=== PATIENT | female | born 1960 | race Caucasian/White ===

== ENCOUNTER 2016-04-12 08:10 | Observation (INO) | payer OTHER ==
--- NOTE | 2016-04-12 08:12 | EDPHY ---
H & P Time Seen by Provider: 04/12/16 08:12 - Medical/Surgical History Hx Asthma: Yes Hx Chronic Respiratory Disease: No Hx Diabetes: Yes Hx Cardiac Disease: No Hx Renal Disease: No Hx Cirrhosis: No Hx Alcoholism: No Hx HIV/AIDS: No Hx Splenectomy or Spleen Trauma: No Other PMH: Diabetes type I, asthma, hyperlipidemia, "heart problems" - Social History Smoking Status: Never smoked Constitutional: Initial Vital Signs Temperature (C) 36.6 C 04/12/16 08:10 Heart Rate 92 04/12/16 08:10 Respiratory Rate 18 04/12/16 08:10 Blood Pressure 122/84 H 04/12/16 08:10 O2 Sat (%) 97 04/12/16 08:10 O2 Delivery Mode Room Air O2 (L/minute) 2 Allergies/Adverse Reactions: diphenhydramine HCl [From Benadryl] Adverse Reaction (Mild, Verified 04/12/16 08 :12) RACING HEART RATE Home Medications: Medication Instructions Recorded Aspirin [Aspirin 81mg (*)] 81 mg PO DAILY 04/12/16 Atorvastatin Calcium [Lipitor 20 20 mg PO DAILY 04/12/16 mg (*)] Levothyroxine [Synthroid 100 mcg 100 mcg PO DAILY06 04/12/16 (*)] Lisinopril [Zestril 5 mg (*)] 5 mg PO 04/12/16 Metformin HCl [Metformin 1000 mg] 1,000 mg PO 04/12/16 cloZAPine [Clozaril (*)] 100 mg PO 04/12/16 sitaGLIPtin PHOSPHATE [Januvia 100 100 mg PO DAILY 04/12/16 MG (*)] Medical Decision Making ED Course/Re-evaluation: CHIEF COMPLAINT: Chest pain HISTORY OF PRESENT ILLNESS: The patient is a 55 y/o female complaining of intermittent chest pressure that woke her from sleep around midnight, about 8 hours ago. She has a history of COPD, diabetes, and a "silent MO" with heart catheterization in 2013 that showed some stenosis. Her pain has woke her repeatedly from sleep over this period and varied in intensity from 3/10 to 8/ 10. She has chronic dyspnea related to her COPD, but feels it is worse today and associated with lightheadedness. No nausea or vomiting. She normally takes a daily baby aspirin, but has not taken it today. REVIEW OF SYSTEMS: A 10 point review of systems was performed and is negative with the exception of the elements mentioned in the history of present illness. PHYSICAL EXAM: HR, BP, O2 Sat, RR. Temp noted General Appearance: Alert, well hydrated, appropriate, and non-toxic appearing. Head: Atraumatic without scalp tenderness or obvious injury Eyes: Pupils equal, round, reactive to light and accommodation, EOMI, no trauma , no injection. Ears: Clear bilaterally, no perforation, normal landmarks Nose: Atraumatic, no rhinorrhea, clear. Throat: There is no erythema or exudates, no lesions, normal tonsils, mucus membranes moist. Neck: Supple, 2+ carotid upstroke, nontender, no lymphadenopathy. Respiratory: No retractions, no distress, no wheezes, and no accessory muscle use. Mildly tachypneic while speaking. Lungs are clear to auscultation bilaterally. Cardiovascular: Regular rate and rhythm, no murmurs, rubs, or gallops. Bilateral carotid, radial, dorsalis pedis, and posterior tibial pulses intact. Good capillary refill all extremities. Gastrointestinal: Abdomen is soft, nontender, non-distended, no masses, no rebound, no guarding, no peritoneal signs. Musculoskeletal: Normal active ROM of all extremities, atraumatic. Neurological: Alert, appropriate, and interactive. The patient has normal DTRs and non-focal cranial nerves, motor, sensory, and cerebellar exam. Skin: No rashes, good turgor, no nodules on palpation. Past medical history: diabetes, COPD, "silent MO" Past surgical history: Cardiac catheterization 2013 Family history: Noncontributory Social history: Lives in [place] Prior medical records reviewed including catheterization May [address] Hayes. DIAGNOSTICS/PROCEDURES/CRITICAL CARE TIME: The 12 lead EKG was interpreted by myself. Sinus rhythm rate 90, LAD, poor R wave progression. See hard copy and/or "tracemaster" electronic copy for interpretation. DIFFERENTIAL DIAGNOSIS: The differential diagnosis for the patient's chest pain included but was not limited to myocardial ischemia, pulmonary embolus, chest wall pain, pleural inflammation, and pulmonary infectious causes. MEDICAL DECISION MAKING: This is a 55 y/o female, with a history of diabetes, COPD, and prior heart catheterization who presents today with 8 hours of intermittent chest pressure that repeatedly woke her from sleep. She has associated dyspnea worse than baseline. She has some increased respiratory effort on exam, but otherwise normal. Plan for full cardiac work up including IV, cardiac labs, and EKG. 324mg PO aspirin administered. 0915: Troponin negative. Discussed case with Dr. Summers, cardiology. He will assess patient in the ED. - Data Points Laboratory Results: Laboratory Results 04/12/16 08:20 04/12/16 08:20 04/12/16 04/12/16 08:20 08:17 WBC 7.95 10^3/uL (3.80-9.50) RBC 5.09 10^6/uL (4.18-5.33) Hgb 14.3 g/dL (12.6-16.3) POC Hgb 15.3 gm/dL (12.3-15.9) Hct 43.5 % (38.0-47.0) POC Hct 45 % (35.5-47.5) MCV 85.5 fL (81.5-99.8) MCH 28.1 pg (27.9-34.1) MCHC 32.9 g/dL (32.4-36.7) RDW 14.2 % (11.5-15.2) Plt Count 272 10^3/uL (150-400) MPV 9.6 fL (8.7-11.7) Neut % (Auto) 64.4 % (39.3-74.2) Lymph % (Auto) 22.9 % (15.0-45.0) [place] % (Auto) 8.6 % (4.5-13.0) Eos % (Auto) 2.8 % (0.6-7.6) Baso % (Auto) 0.8 % (0.3-1.7) Nucleat RBC Rel Count 0.0 % (0.0-0.2) Absolute Neuts (auto) 5.13 10^3/uL (1.70-6.50) Absolute Lymphs (auto) 1.82 10^3/uL (1.00-3.00) Absolute Monos (auto) 0.68 10^3/uL (0.30-0.80) Absolute Eos (auto) 0.22 10^3/uL (0.03-0.40) Absolute Basos (auto) 0.06 10^3/uL (0.02-0.10) Absolute Nucleated RBC 0.00 10^3/uL (0-0.01) Immature Gran % 0.5 % (0.0-1.1) Immature Gran # 0.04 10^3/uL (0.00-0.10) POC Sodium 143 mEq/L (134-144) Sodium 144 mEq/L (134-144) POC Potassium 3.9 mEq/L (3.3-5.0) Potassium 4.3 mEq/L (3.5-5.2) POC Chloride 106 mEq/L (96-108) Chloride 110 mEq/L (97-110) Carbon Dioxide 22 mEq/l (22-31) Anion Gap 12 mEq/L (8-16) POC BUN 5 L mg/dL (7-23) BUN 7 mg/dL (7-23) Creatinine 0.9 mg/dL (0.6-1.0) POC Creatinine 0.9 mg/dL (0.6-1.2) Estimated GFR > 60 Glucose 110 H mg/dL (70-100) POC Glucose 113 H mg/dL (70-100) Calcium 9.5 mg/dL (8.5-10.4) Troponin I < 0.012 ng/mL (0-0.034) Point of Care Test Results: 04/12/16 08:17 POC Sodium 143 POC Potassium 3.9 POC Chloride 106 POC BUN 5 L POC Creatinine 0.9 POC Glucose 113 H Report Scribed for: Elijah Talbot Report Scribed by: Nanci Lambert Date of Report: 04/12/16 Time of Report: 08:37
--- NOTE | 2016-04-12 08:19 | CPEKG ---
Heart Rate: 90 RR Interval: 667 P-R Interval: 152 QRSD Interval: 88 QT Interval: 356 QTC Interval: 436 P Brewster: 16 QRS Brewster: -49 T Wave Brewster: 10 EKG Severity - ABNORMAL ECG - EKG Impression: SINUS RHYTHM EKG Impression: LAD, CONSIDER LAFB OR INFERIOR INFARCT EKG Impression: BORDERLINE R WAVE PROGRESSION, ANTERIOR LEADS Electronically Signed By: Elijah Talbot 12-Apr-2016 14:31:23
[2016-04-12] MEDS ORDERED: ASPIRIN 81 MG CHEWABLE TAB PO ONE (08:24)
[2016-04-12] MEDS ORDERED: ASPIRIN 81 MG CHEWABLE TAB ONE (08:26)
[2016-04-12 08:34] LABS: % IMMATURE GRANULYOCYTES 0.5 % (0.0-1.1); ABSOLUTE IMMATURE GRANULOCYTES 0.04 10^3/uL (0.00-0.10); ADD DIFF? NO; ADD MORPH? NO; ADD SCAN? NO; ATYPICAL LYMPHOCYTE FLAG 0 (0-99); FRAGMENT RBC FLAG 0 (0-99); HEMATOCRIT 43.5 % (38.0-47.0); HEMOGLOBIN 14.3 g/dL (12.6-16.3); LEFT SHIFT FLG 0 (0-99); LIPEMIA HEMOLYSIS FLAG 80 (0-99); MEAN CELL HEMOGLOBIN 28.1 pg (27.9-34.1); MEAN CELL HEMOGLOBIN CONCENTR. 32.9 g/dL (32.4-36.7); MEAN CELL VOLUME 85.5 fL (81.5-99.8); MEAN PLATELET VOLUME 9.6 fL (8.7-11.7); PLATELET CLUMPS FLAG 0 (0-99); PLATELET COUNT 272 10^3/uL (150-400); RED BLOOD CELL COUNT 5.09 10^6/uL (4.18-5.33); RED CELL DISTRIBUTION WIDTH 14.2 % (11.5-15.2)
[2016-04-12 08:49] LABS: ANION GAP 12 mEq/L (8-16); CALCIUM 9.5 mg/dL (8.5-10.4); CARBON DIOXIDE 22 mEq/l (22-31); CHLORIDE 110 mEq/L (97-110); CREATININE 0.9 mg/dL (0.6-1.0); GLOMERULAR FILTRATION RATE > 60; GLUCOSE 110 mg/dL (70-100); POTASSIUM 4.3 mEq/L (3.5-5.2); SODIUM 144 mEq/L (134-144)
[2016-04-12 09:00] LABS: TROPONIN I < 0.012 ng/mL (0-0.034)
[2016-04-12] MEDS ORDERED: NS 1,000 ML IV ONE ×2 (11:39)
[2016-04-12] MEDS ORDERED: ASPIRIN EC 325 MG TAB PO ONE ×3 (11:39→12:31)
[2016-04-12] MEDS ORDERED: FAMOTIDINE 20 MG TAB PO ONE ×2 (11:39)
[2016-04-12 11:58] LABS: INR 1.02 (0.83-1.16); PROTIME(PATIENT) 13.3 SEC (12.0-15.0)
[2016-04-12] MEDS ORDERED: NITROGLYCERIN 0.4 MG BTL SL PRN (12:31)
[2016-04-12] MEDS ORDERED: TEMAZEPAM 15 MG CAP PO PRN (12:31)
[2016-04-12] MEDS ORDERED: DIAZEPAM 5 MG TAB PO ONE (12:31)
[2016-04-12] MEDS ORDERED: ACETAMINOPHEN 325 MG TAB PO PRN (12:31)
[2016-04-12] MEDS ORDERED: diphenhydrAMINE 25 MG CAP PO ONE (12:31)
--- NOTE | 2016-04-12 12:48 | PDGENHP ---
History and Physical - Chief Complaint Chest Pressure - History of Present Illness This patient is a 55 year old woman, with known coronary artery disease (mild- moderate by left heart catheterization 05/2013), insulin dependent diabetes, and treated hyperlipidemia, who presented to the emergency department this morning after having approximately 8 hours of intermittent chest pressure, which woke her from sleep multiple times in the night. Discomfort was moderate in severity. The pain resolved once she got out of bed this morning and started moving around. At the time of this consultation, the pain has not recurred. Past medical history: Coronary artery disease (mild-moderate by [facility] 05/2013 with mid LAD 50% stenosis at that time), insulin dependent diabetes, treated hyperlipidemia, hypertension, hypothyroidism, asthma, COPD, ovarian cancer. Consultation requested by Dr. Elijah Talbot. Primary care provider: Dr. Fidelina Acosta with [facility]. History Information - Allergies/Home Medication List Allergies/Adverse Reactions: diphenhydramine HCl [From Benadryl] Allergy (Mild, Verified 04/12/16 13:10) RACING HEART RATE Home Medications: Aspirin [Aspirin 81mg (*)] 81 mg PO HS 04/12/16 [Last Taken 04/11/16 21:00] Atorvastatin Calcium [Lipitor 20 mg (*)] 20 mg PO HS 04/12/16 [Last Taken 21:00] Herbals/Supplements -Info Only 1 ea PO DAILY 04/12/16 [Last Taken Unknown] Insulin Glargine [Lantus 100 UNITS/ML (*)] 47 units SC HS 04/12/16 [Last Taken 04/11/16] Levothyroxine [Synthroid 100 mcg (*)] 100 mcg PO DAILY06 04/12/16 [Last Taken ] Lisinopril [Zestril 5 mg (*)] 5 mg PO DAILY 04/12/16 [Last Taken 04/12/16 07:00] Multivitamins [Multivitamin (*)] 1 each PO DAILY 04/12/16 [Last Taken Unknown] cloZAPine [Clozaril (*)] 100 mg PO HS 04/12/16 [Last Taken 04/11/16 21:00] metFORMIN HCL [Glucophage 500 mg (*)] 1,000 mg PO BIDMEAL 04/12/16 [Last Taken 04/12/16] sitaGLIPtin PHOSPHATE [Januvia 100 MG (*)] 100 mg PO DAILY 04/12/16 [Last Taken 04/12/16 07:00] I have personally reviewed and updated: family history, medical history, social history, surgical history - Past Medical History asthma, coronary artery disease, cancer (ovarian), COPD, diabetes type 2 ( insulin dependent), hyperlipidemia Review of Systems Review of Systems: Constitutional: Denies: chills, diaphoresis, fever Cardiac: Reports: chest pain Respiratory: Reports: shortness of breath (chronic secondary to COPD and asthma) Gastrointestinal: Denies: vomitting, nausea Genitourinary: Reports: no symptoms Muscolosketal: Reports: no symptoms Skin: Reports: no symptoms Neurological: Reports: no symptoms Physical Exam Physical Exam: Temp Pulse Resp BP Pulse Ox 98.4 F 73 18 128/60 H 95 04/12/16 11:52 04/12/16 11:52 04/12/16 11:52 04/12/16 11:52 04/12/16 11:52 O2 (L/minute) 2 Constitutional: no apparent distress, appears nourished, not in pain, obese Eyes: PERRL Ears, Nose, Mouth, Throat: moist mucous membranes Cardiovascular: regular rate and rhythym, no murmur, rub, or gallop, pulses symmetric bilaterally, other (Normal Davis's test bilaterally), No JVD, No carotid bruit, No edema Respiratory: no respiratory distress, no rales or rhonchi, clear to auscultation Gastrointestinal: soft, non-tender abdomen Skin: normal color Neurologic: AAOx3 Psychiatric: interacting appropriately Lab Data & Imaging Review 04/12/16 08:20 04/12/16 08:20 WBC 7.95 10^3/uL (3.80-9.50) 04/12/16 08:20 RBC 5.09 10^6/uL (4.18-5.33) 04/12/16 08:20 Hgb 14.3 g/dL (12.6-16.3) 04/12/16 08:20 POC Hgb 15.3 gm/dL (12.3-15.9) 04/12/16 08:17 Hct 43.5 % (38.0-47.0) 04/12/16 08:20 POC Hct 45 % (35.5-47.5) 04/12/16 08:17 MCV 85.5 fL (81.5-99.8) 04/12/16 08:20 MCH 28.1 pg (27.9-34.1) 04/12/16 08:20 MCHC 32.9 g/dL (32.4-36.7) 04/12/16 08:20 RDW 14.2 % (11.5-15.2) 04/12/16 08:20 Plt Count 272 10^3/uL (150-400) 04/12/16 08:20 MPV 9.6 fL (8.7-11.7) 04/12/16 08:20 Neut % (Auto) 64.4 % (39.3-74.2) 04/12/16 08:20 Lymph % (Auto) 22.9 % (15.0-45.0) 04/12/16 08:20 [place] % (Auto) 8.6 % (4.5-13.0) 04/12/16 08:20 Eos % (Auto) 2.8 % (0.6-7.6) 04/12/16 08:20 Baso % (Auto) 0.8 % (0.3-1.7) 04/12/16 08:20 Nucleat RBC Rel Count 0.0 % (0.0-0.2) 04/12/16 08:20 Absolute Neuts (auto) 5.13 10^3/uL (1.70-6.50) 04/12/16 08:20 Absolute Lymphs (auto) 1.82 10^3/uL (1.00-3.00) 04/12/16 08:20 Absolute Monos (auto) 0.68 10^3/uL (0.30-0.80) 04/12/16 08:20 Absolute Eos (auto) 0.22 10^3/uL (0.03-0.40) 04/12/16 08:20 Absolute Basos (auto) 0.06 10^3/uL (0.02-0.10) 04/12/16 08:20 Absolute Nucleated RBC 0.00 10^3/uL (0-0.01) 04/12/16 08:20 Immature Gran % 0.5 % (0.0-1.1) 04/12/16 08:20 Immature Gran # 0.04 10^3/uL (0.00-0.10) 04/12/16 08:20 PT 13.3 SEC (12.0-15.0) 04/12/16 08:20 INR 1.02 (0.83-1.16) 04/12/16 08:20 POC Sodium 143 mEq/L (134-144) 04/12/16 08:17 Sodium 144 mEq/L (134-144) 04/12/16 08:20 POC Potassium 3.9 mEq/L (3.3-5.0) 04/12/16 08:17 Potassium 4.3 mEq/L (3.5-5.2) 04/12/16 08:20 POC Chloride 106 mEq/L (96-108) 04/12/16 08:17 Chloride 110 mEq/L (97-110) 04/12/16 08:20 Carbon Dioxide 22 mEq/l (22-31) 04/12/16 08:20 Anion Gap 12 mEq/L (8-16) 04/12/16 08:20 POC BUN 5 mg/dL (7-23) L 04/12/16 08:17 BUN 7 mg/dL (7-23) 04/12/16 08:20 Creatinine 0.9 mg/dL (0.6-1.0) 04/12/16 08:20 POC Creatinine 0.9 mg/dL (0.6-1.2) 04/12/16 08:17 Estimated GFR > 60 04/12/16 08:20 Glucose 110 mg/dL (70-100) H 04/12/16 08:20 POC Glucose 98 mg/dL (70-100) 04/12/16 12:23 Calcium 9.5 mg/dL (8.5-10.4) 04/12/16 08:20 Troponin I < 0.012 ng/mL (0-0.034) 04/12/16 08:20 Assessment & Plan Assessment: 1. Chest pressure. Presenting at rest and waking the patient from sleep. She is pain free on my evaluation. Symptoms are concerning for class IV angina in the setting of known coronary artery disease and history of diabetes. Troponin in the emergency department was negative. 2. Coronary artery disease. Mild-moderate coronary artery disease by left heart catheterization 05/2013, with most significant disease being a hazy 50% mid LAD stenosis at that time. 3. Insulin dependent diabetes. Managed with Metformin and insulin. 4. Hyperlipidemia. Treated with 20mg Atorvastatin. The last lipids in our system were 05/31/13, with LDL of 150 at that time. 5. Hypertension. Treated with 5mg Lisinopril. 6. Hypothyroidism. Treated with 100mcg Levothyroxine daily. 7. Asthma 8. COPD Plan: 1. Plan for left heart catheterization with radial access this afternoon. Portions of this report were documented by a center medical and lab director. I have reviewed this report and agree with the documentation. Report scribed for Dr. Vidal Summers. Report scribed by Brisa Lucia.
[2016-04-12 13:26] LABS: CHOLESTEROL 176 mg/dL (140-220); CHOLESTEROL/HDL RATIO 3.74 RATIO (1.00-4.44); HIGH DENSITY LIPOPROTEIN 47 mg/dL (40-85); LDL/HDL RATIO 2.04 RATIO (1.00-3.22); LOW DENSITY LIPOPROTEIN 96 mg/dL (80-100); MAGNESIUM 1.9 mg/dL (1.6-2.3); NON-HIGH DENSITY LIPOPROTEIN 129 mg/dL (90-129); TRIGLYCERIDE 166 mg/dL (35-135); VERY LOW DENSITY LIPOPROTEINS 33 mg/dL (8-25)
[2016-04-12] MEDS ORDERED: fentaNYL 100 MCG/2 ML INJ ONE ×2 (13:34→14:07)
[2016-04-12] MEDS ORDERED: LIDOCAINE 1% 30 ML SDV ONE (13:34)
[2016-04-12] MEDS ORDERED: VERAPAMIL 5 MG/2 ML VIAL ONE (13:35)
[2016-04-12] MEDS ORDERED: MIDAZOLAM 2 MG/2 ML VIAL ONE ×2 (13:35→14:08)
[2016-04-12] MEDS ORDERED: IOPAMIDOL (ISOVUE-370) 150 ML BTL IV ONE (13:35)
[2016-04-12] MEDS ORDERED: HEPARIN 10,000 UNIT/10 ML MDV ONE (13:35)
--- NOTE | 2016-04-12 13:40 | SUROPNOTE ---
[facility] Operative Report - Surgery Date of Procedure: 04/12/16 Indication: This patient is a 55 year old woman, with known coronary disease, treated hyperlipidemia, hypertension, and insulin dependent diabetes, who presented to the emergency department today with approximately 8 hours of intermittent resting chest pressure, which woke her from sleep multiple times. The pressure resolved after she got up this morning and started moving around. Patient has known 50% mid LAD stenosis by [facility] in 05/2013. In the setting of known coronary disease and history of diabetes, symptoms are concerning for [place] Cardiovascular class IV angina. No stress testing was performed secondary to resting chest pain. Left heart catheterization will be performed urgently secondary to class IV angina. Procedures performed: 1. Left heart catheterization with left ventricular and selective coronary angiography. Description of procedure: Description, risks, benefits and alternatives were discussed in detail. Informed consent was obtained. The patient was brought to the catheterization laboratory where a timeout was performed. The right wrist was sterilely prepped and draped. 2% lidocaine utilized for local anesthetic. A 5/6-Yemeni slender hemostatic sheath placed right radial artery utilizing micropuncture technique. Intraarterial verapamil and intravenous heparin was administered. Diagnostic coronary angiography performed with 6-Yemeni, Ghislaine left-3.5, Ghislaine right-4 , Nitesh Right, and AL1 catheter. The right coronary was difficult to engage; ultimately this was achieved with the Nitesh Right and AL1 catheter. All catheters were passed over a 0.035 guidewire. Pigtail catheter was then utilized for left heart catheterization and left ventricular angiography. Arterial sheath was removed and TR band was placed. Findings: 1. Hemodynamics: Aortic pressure 111/64, mean of 80, left ventricular pressure 118/6/19 end-diastolic. There was no significant pull back gradient across the aortic valve. 2. Left ventricle: The left ventricle appears normal in size. Left ventricle is normal shape. Segmental wall motion is normal with an ejection fraction of 60 %. There are no filling defects or significant mitral regurgitation. The aortic root and ascending aorta appears normal, there is no dissection or aneurysm formation. 3. Coronary angiography: Left main: The left main is a short, large diameter bifurcating vessel, free of disease. 4. Left anterior descending: This is a moderately large vessel continuing around the apex which gives rise to two early diagonal branches, first is small and the second is moderate in size. The mid LAD contains a mildly hazy 40-50% stenosis. 5. Circumflex: This is a co-dominant vessel which gives rise to a small- moderate first obtuse marginal, large second obtuse marginal branch, and a moderate and small posterolateral branch. Free of disease. 6. 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 Overall Impression: 1. Moderate mid LAD disease with a hazy 40-50% stenosis. 2. Otherwise, there is very minimal coronary artery disease. 3. Normal left ventricular systolic function, with ejection fraction of 60%. Plan: 1. Continue aggressive risk modification and high dose statin therapy. 2. Outpatient evaluation with primary care provider Dr. Coni Acosta to evaluate non-cardiac chest pain. Portions of this report were documented by a medical charge entry specialist. I have reviewed this report and agree with the documentation. Report scribed for Dr. Vidal Summers. Report scribed by Brisa Lucia.
--- NOTE | 2016-04-12 17:17 | DX ---
Portable Chest, 1453 History: Chest pain post catheter procedure. Findings: Inspiratory phase is rather poor. Lungs clear. Heart normal. No pneumothorax or pleural eff usion. EKG leads overlie the chest. Impression: No source for chest pain identified.
[2016-04-12] MEDS ORDERED: INSULIN GLARGINE 100 UNITS/ML SYRINGE SC SCH (21:00)
[2016-04-12] MEDS ORDERED: cloZAPine 100 MG TAB PO SCH (21:00)
[2016-04-12] MEDS ORDERED: ATORVASTATIN CALCIUM 20 MG TAB PO SCH (21:00)
[2016-04-12] MEDS ORDERED: LEVOTHYROXINE 100 MCG TAB PO SCH (21:00)
[2016-04-13 08:49] VITALS: BP 122/77; PULSE 89; RESP 14; TEMP 98.5; O2SAT 94
[2016-04-13] MEDS ORDERED: ASPIRIN 81 MG CHEWABLE TAB PO SCH (09:00)
[2016-04-13] MEDS ORDERED: LISINOPRIL 5 MG TAB PO SCH (10:00)
--- NOTE | 2016-04-13 10:56 | SOAPPROG ---
SOAP Progress Note Assessment/Plan: Assessment: Cardiology ([place]) 1. Admit with chest pressure, worse in the supine position night before last, waking her up frequently. Non-cardiac in nature. D-dimer was negative. Possible GERD related. Patient usually takes OTC Tums. She denies any recent history of exertional chest discomfort. 2. Known CAD with moderate LAD disease. LHC performed yesterday was stable c/t prior in May 2013, no PCI performed. 3. Hyperlipidemia treated w/ atorvastatin. 4. HTN. 5. Insulin dependent DM. 6. COPD/asthma. Plan: 1. Hold metformin until tomorrow due to iv contrast yesterday. 2. Continue all other home medications. 3. Discharge to home today. 4. Follow up with PCP Dr. Acosta in 1-2 weeks, consider PPI. 04/13/16 10:53 04/13/16 10:57 04/13/16 11:03 Subjective: No complaints this am. Right radial puncture site is uncomplicated. No recurrent chest discomfort. Objective: Vital Signs Temp Pulse Resp BP Pulse Ox 36.9 C 89 14 122/77 H 94 04/13/16 08:00 04/13/16 08:00 04/13/16 08:00 04/13/16 08:00 04/13/16 08:00 04/12/16 04/13/16 04/14/16 05:59 05:59 05:59 Intake Total 350 Output Total 300 Balance 50 PT 13.3 SEC (12.0-15.0) 04/12/16 08:20 INR 1.02 (0.83-1.16) 04/12/16 08:20 Physical Exam - Physical Exam General Appearance: WD/WN, alert, no apparent distress, obese Respiratory: chest non-tender, lungs clear, normal breath sounds Cardiac/Chest: normal peripheral pulses, regular rate, rhythm Peripheral Pulses: 2+: dorsalis-pedis (R), dorsalis-pedis (L) Abdomen: normal bowel sounds, non-tender, soft Extremities: No swelling Neuro/Psych: no motor/sensory deficits, alert, normal mood/affect, oriented x 3 ICD10 Worksheet Patient Problems: Problems Problem Status Diagnosed Chest pain Acute Coronary artery disease Acute
[2016-04-13] MEDS ORDERED: cloZAPine 100 MG TAB PO SCH (21:00)
[2016-04-13] MEDS ORDERED: INSULIN GLARGINE 100 UNITS/ML SYRINGE SC SCH (21:00)
[2016-04-14] MEDS ORDERED: metFORMIN HCL 500 MG TAB PO SCH (08:00)
[2016-04-14] MEDS ORDERED: Herbals/Supplements -Info Only PO SCH (09:00)
[2016-04-14] MEDS ORDERED: MULTIVITAMINS 1 EACH TAB PO SCH (09:00)
== END 2016-04-13 11:40 | disposition home or self-care (01) ==
LOC: FCATH 11:53 → F2W 14:54
PROVIDERS: ADMIT Internal Medicine Interventional Cardiology; ATTEND Internal Medicine Interventional Cardiology
DX: R07.89 Other chest pain (principal); I25.10 Atherosclerotic heart disease of native coronary artery without angina pectoris; E11.9 Type 2 diabetes mellitus without complications; J45.909 Unspecified asthma, uncomplicated; E78.5 Hyperlipidemia, unspecified; E03.9 Hypothyroidism, unspecified; J44.9 Chronic obstructive pulmonary disease, unspecified; Z85.43 Personal history of malignant neoplasm of ovary
CPT/HCPCS: 71010; 93005; 93458; G0378; J1644; J1815; J2250; J3010; Q9967; 82947-QW

== ENCOUNTER → 2016-06-18 | Outpatient (CLI) | payer OTHER, MEDICAID | LOC: FIMAGING 15:38 | DX: Z12.31 Encounter for screening mammogram for malignant neoplasm of breast (principal) | CPT/HCPCS: G0202 ==

== ENCOUNTER 2016-08-03 09:07 | Emergency (ER) | payer OTHER, MEDICAID ==
[2016-08-03] MEDS ORDERED: NS 1,000 ML IV ONE (09:55)
--- NOTE | 2016-08-03 09:57 | EDPHY ---
H & P Stated Complaint: months of generalized abd pain/has seen pcp previously no resolution HPI/ROS: CHIEF COMPLAINT: Abdominal pain HISTORY OF PRESENT ILLNESS: Patient complains of epigastric abdominal pain. Has been present for months. It is constant but does wax and wane. Sometimes very mild. Currently me rated as a 3/10. Worse with palpation and Valsalva. Occasional nausea but no vomiting. No fever chills. No chest pain or shortness of breath. No syncope. No numbness or tingling distally. No radiating pain. No trauma or injury. Minimal urinary discomfort. No flank pain. No other associated complaints or modifying factors. She has been evaluated for this many times over the past few months without definitive diagnosis. PREVIOUS ABDOMINAL SURGERIES/DIAGNOSES: Oophorectomy and appendectomy remotely NPO: Drinking [employer] coffee during my examination REVIEW OF SYSTEMS: Ten systems reviewed and are negative unless otherwise noted in the HPI EXAMINATION: General Appearance: Alert, no distress Head: normocephalic, atraumatic Eyes: Pupils equal and round, no conjunctival pallor or injection ENT, Mouth: Mucous membranes moist Neck: Normal inspection, supple, non-tender Respiratory: Lungs are clear to auscultation. No wheezing, rhonchi or crackles. Cardiovascular: Regular rate and rhythm. No murmur. Pulses intact distally. No carotid bruits Gastrointestinal: Abdomen is soft mildly tender in the epigastrium. No tympany. No rigidity. No CVA tenderness. Non-acute abdomen. Back: non-tender, no bony abnormalities Neurological: A&O, nonfocal, normal gait Skin: Warm and dry, no rash Extremities: Nontender, no pedal edema Psychiatric: Mood and affect normal DIFFERENTIAL DIAGNOSES: Including but not limited to pancreatitis, cholecystitis, cholelithiasis, colitis, enteritis, pyelonephritis, UTI MDM: 9:30 a.m. Epigastric and generalized abdominal pain. This is a colicky pain over the past 2 months. Currently present. Associated with some lightheadedness last night. No chest pain. No syncope. Vital signs stable. Laboratory studies, chest x- ray, EKG, CT scan are pending 10:45 a.m. Laboratory studies reveal possible UTI. Otherwise within normal limits. CT scan is pending. 11:47 a.m. Notified by radiologist Dr. Birch. CT scan is unremarkable. 12:20 p.m. Laboratory studies revealed urinary tract infection. No evidence of pyelonephritis by history or examination. Vital signs were well within normal limits. CT scan is unremarkable. Treatment started here with Rocephin. Transition to Keflex by mouth. Discharged home with Keflex and instructions to follow up with her established physician at [facility]. Discussed possible GI referral should they feel it is warranted. Return here for changes of pain, nausea vomiting. She is comfortable this plan and discharged home stable condition ED Precautions: Worsening pain. Fever. Bloody stools. Bloody emesis. Constipation or diarrhea. SUPERVISION: This patient was independently evaluated without direct examination by the attending physician. Case was discussed with attending physician. Source: Patient Exam Limitations: No limitations - Personal History Current Tetanus/Diphtheria Vaccine: Unsure - Medical/Surgical History Hx Asthma: Yes Hx Chronic Respiratory Disease: No Hx Diabetes: Yes Hx Cardiac Disease: No Hx Renal Disease: No Hx Cirrhosis: No Hx Alcoholism: No Hx HIV/AIDS: No Hx Splenectomy or Spleen Trauma: No Other PMH: Diabetes type I, asthma, hyperlipidemia, "heart problems", schizo- affective, bipolar - Social History Smoking Status: Never smoked Constitutional: Initial Vital Signs Temperature (C) 97.5 F 08/03/16 09:12 Heart Rate 83 08/03/16 09:12 Respiratory Rate 18 08/03/16 09:12 Blood Pressure 132/67 H 08/03/16 09:12 O2 Sat (%) 95 08/03/16 09:12 O2 Delivery Mode Room Air Allergies/Adverse Reactions: diphenhydramine HCl [From Benadryl] Allergy (Mild, Verified 08/03/16 09:08) RACING HEART RATE Home Medications: Medication Instructions Recorded Aspirin [Aspirin 81mg (*)] 81 mg PO HS 04/12/16 Atorvastatin Calcium [Lipitor 20 20 mg PO HS 04/12/16 mg (*)] Herbals/Supplements -Info Only 1 ea PO DAILY 04/12/16 Insulin Glargine [Lantus 100 47 units SC HS 04/12/16 UNITS/ML (*)] Levothyroxine [Synthroid 100 mcg 100 mcg PO DAILY06 04/12/16 (*)] Lisinopril [Zestril 5 mg (*)] 5 mg PO DAILY 04/12/16 Multivitamins [Multivitamin (*)] 1 each PO DAILY 04/12/16 cloZAPine [Clozaril (*)] 100 mg PO HS 04/12/16 metFORMIN HCL [Glucophage 500 mg 1,000 mg PO BIDMEAL 04/12/16 (*)] sitaGLIPtin PHOSPHATE [Januvia 100 100 mg PO DAILY 04/12/16 MG (*)] Cephalexin [Keflex (*)] 500 mg PO TID #30 cap 08/03/16 Medical Decision Making - Diagnostics Imaging Results: Imaging Impressions Abdomen CT 08/03/16 09:56 Impression: 1. No pancreatitis or acute abdominal process to explain pain. 2. Constipation. 3. Cholelithiasis. 4. Minimal hepatic steatosis. Findings discussed with Emergency Department physician's clinic office assistant, Dhiraj Roper , at 1150 hours 08/03/2016. Chest X-Ray 08/03/16 09:56 Impression: Negative. - Data Points Laboratory Results: Laboratory Results 08/03/16 10:08 08/03/16 10:08 08/03/16 08/03/16 08/03/16 10:45 10:08 10:08 WBC RBC Hgb Hct MCV MCH MCHC RDW Plt Count MPV Neut % (Auto) Lymph % (Auto) [place] % (Auto) Eos % (Auto) Baso % (Auto) Nucleat RBC Rel Count Absolute Neuts (auto) Absolute Lymphs (auto) Absolute Monos (auto) Absolute Eos (auto) Absolute Basos (auto) Absolute Nucleated RBC Immature Gran % Immature Gran # Sodium 143 mEq/L mEq/L (134-144) Potassium 4.0 mEq/L mEq/L (3.5-5.2) Chloride 108 mEq/L mEq/L (97-110) Carbon Dioxide 22 mEq/l mEq/l (22-31) Anion Gap 13 mEq/L mEq/L (8-16) BUN 9 mg/dL mg/dL (7-23) Creatinine 0.8 mg/dL mg/dL (0.6-1.0) Estimated GFR > 60 Glucose 145 mg/dL H mg/dL (70-100) Calcium 9.1 mg/dL mg/dL (8.5-10.4) Total Bilirubin 0.6 mg/dL mg/dL (0.1-1.4) Conjugated Bilirubin 0.3 mg/dL mg/dL (0.0-0.5) Unconjugated Bilirubin 0.3 mg/dL mg/dL (0.0-1.1) AST 32 IU/L IU/L (14-46) ALT 38 IU/L IU/L (9-52) Alkaline Phosphatase 90 IU/L IU/L (38-126) Troponin I < 0.012 ng/mL ng/mL (0-0.034) Total Protein 7.7 g/dL g/dL (6.3-8.2) Albumin 4.4 g/dL g/dL (3.5-5.0) Lipase 71.0 IU/L IU/L (23-300) Beta HCG, Qual NEGATIVE Urine Color YELLOW Urine Appearance HAZY Urine pH 7.0 (5.0-7.5) Ur Specific [place] 1.008 (1.002-1.030) Urine Protein NEGATIVE (NEGATIVE) Urine Ketones NEGATIVE (NEGATIVE) Urine Blood NEGATIVE (NEGATIVE) Urine Nitrate NEGATIVE (NEGATIVE) Urine Bilirubin NEGATIVE (NEGATIVE) Urine Urobilinogen NEGATIVE EU EU (0.2-1.0) Ur Leukocyte Esterase 3+ H (NEGATIVE) Urine RBC 3-5 /hpf H /hpf (0-3) Urine WBC 50-182 /hpf H /hpf (0-3) Ur Epithelial Cells TRACE /lpf /lpf (NONE-1+) Urine Bacteria TRACE /hpf H /hpf (NONE SEEN) Urine Mucus TRACE /lpf /lpf (NONE-1+) Urine Glucose NEGATIVE (NEGATIVE) 08/03/16 10:08 WBC 6.80 10^3/uL 10^3/uL (3.80-9.50) RBC 4.63 10^6/uL 10^6/uL (4.18-5.33) Hgb 13.3 g/dL g/dL (12.6-16.3) Hct 40.1 % % (38.0-47.0) MCV 86.6 fL fL (81.5-99.8) MCH 28.7 pg pg (27.9-34.1) MCHC 33.2 g/dL g/dL (32.4-36.7) RDW 14.4 % % (11.5-15.2) Plt Count 282 10^3/uL 10^3/uL (150-400) MPV 9.8 fL fL (8.7-11.7) Neut % (Auto) 65.5 % % (39.3-74.2) Lymph % (Auto) 26.0 % % (15.0-45.0) [place] % (Auto) 5.3 % % (4.5-13.0) Eos % (Auto) 2.1 % % (0.6-7.6) Baso % (Auto) 0.7 % % (0.3-1.7) Nucleat RBC Rel Count 0.0 % % (0.0-0.2) Absolute Neuts (auto) 4.45 10^3/uL 10^3/uL (1.70-6.50) Absolute Lymphs (auto) 1.77 10^3/uL 10^3/uL (1.00-3.00) Absolute Monos (auto) 0.36 10^3/uL 10^3/uL (0.30-0.80) Absolute Eos (auto) 0.14 10^3/uL 10^3/uL (0.03-0.40) Absolute Basos (auto) 0.05 10^3/uL 10^3/uL (0.02-0.10) Absolute Nucleated RBC 0.00 10^3/uL 10^3/uL (0-0.01) Immature Gran % 0.4 % % (0.0-1.1) Immature Gran # 0.03 10^3/uL 10^3/uL (0.00-0.10) Sodium Potassium Chloride Carbon Dioxide Anion Gap BUN Creatinine Estimated GFR Glucose Calcium Total Bilirubin Conjugated Bilirubin Unconjugated Bilirubin AST ALT Alkaline Phosphatase Troponin I Total Protein Albumin Lipase Beta HCG, Qual Urine Color Urine Appearance Urine pH Ur Specific [place] Urine Protein Urine Ketones Urine Blood Urine Nitrate Urine Bilirubin Urine Urobilinogen Ur Leukocyte Esterase Urine RBC Urine WBC Ur Epithelial Cells Urine Bacteria Urine Mucus Urine Glucose Medications Given: Discontinued Medications Sodium Chloride (Ns) 1,000 mls @ 0 mls/hr IV ONCE ONE PRN Reason: Wide Open Stop: 08/03/16 09:56 Last Admin: 08/03/16 10:23 Dose: 1,000 mls Ceftriaxone Sodium/Dextrose (Rocephin 1 Gm (Premix)) 50 mls @ 100 mls/hr IV EDNOW ONE PRN Reason: Protocol Stop: 08/03/16 11:57 Last Admin: 08/03/16 11:58 Dose: 50 mls Departure - Departure Disposition: Home, Routine, Self-Care Clinical Impression: UTI (urinary tract infection) Qualifiers: Urinary tract infection type: site unspecified Hematuria presence: with hematuria Qualified Code(s): N39.0 - Urinary tract infection, site not specified ; R31.9 - Hematuria, unspecified Abdominal pain Qualifiers: Abdominal location: epigastric Qualified Code(s): R10.13 - Epigastric pain Condition: Good Instructions: Urinary Tract Infection in Women (ED), Epigastric Pain (ED) Additional Instructions: Contact primary care physician for definitive care. Return here for worsening pain, fever or chills. Return here for any chest pain Referrals: Fidelina Acosta MD [Primary Care Provider] - As per Instructions Prescriptions: Cephalexin [Keflex (*)] 500 mg PO TID #30 cap
--- NOTE | 2016-08-03 09:57 | CPEKG ---
Heart Rate: 75 RR Interval: 800 P-R Interval: 164 QRSD Interval: 98 QT Interval: 388 QTC Interval: 434 P [place]: 17 QRS [place]: -39 T Wave [place]: 14 EKG Severity - ABNORMAL ECG - EKG Impression: SINUS RHYTHM EKG Impression: LEFT AXIS DEVIATION EKG Impression: LEFT VENTRICULAR HYPERTROPHY Electronically Signed By: Jorge Whaley 03-Aug-2016 10:20:11
[2016-08-03 10:16] LABS: % IMMATURE GRANULYOCYTES 0.4 % (0.0-1.1); ABSOLUTE IMMATURE GRANULOCYTES 0.03 10^3/uL (0.00-0.10); ADD DIFF? NO; ADD MORPH? NO; ADD SCAN? NO; ATYPICAL LYMPHOCYTE FLAG 0 (0-99); FRAGMENT RBC FLAG 30 (0-99); HEMATOCRIT 40.1 % (38.0-47.0); HEMOGLOBIN 13.3 g/dL (12.6-16.3); LEFT SHIFT FLG 0 (0-99); LIPEMIA HEMOLYSIS FLAG 80 (0-99); MEAN CELL HEMOGLOBIN 28.7 pg (27.9-34.1); MEAN CELL HEMOGLOBIN CONCENTR. 33.2 g/dL (32.4-36.7); MEAN CELL VOLUME 86.6 fL (81.5-99.8); MEAN PLATELET VOLUME 9.8 fL (8.7-11.7); PLATELET CLUMPS FLAG 10 (0-99); PLATELET COUNT 282 10^3/uL (150-400); RED BLOOD CELL COUNT 4.63 10^6/uL (4.18-5.33); RED CELL DISTRIBUTION WIDTH 14.4 % (11.5-15.2)
[2016-08-03 10:37] LABS: ALANINE AMINOTRANSFERASE 38 IU/L (9-52); ALBUMIN 4.4 g/dL (3.5-5.0); ALKALINE PHOSPHATASE 90 IU/L (38-126); ANION GAP 13 mEq/L (8-16); ASPARTATE AMINOTRANSFERASE 32 IU/L (14-46); BILIRUBIN,TOTAL 0.6 mg/dL (0.1-1.4); BILIRUBIN-CONJUGATED 0.3 mg/dL (0.0-0.5); BILIRUBIN-UNCONJUGATED 0.3 mg/dL (0.0-1.1); CALCIUM 9.1 mg/dL (8.5-10.4); CARBON DIOXIDE 22 mEq/l (22-31); CHLORIDE 108 mEq/L (97-110); CREATININE 0.8 mg/dL (0.6-1.0); GLOMERULAR FILTRATION RATE > 60; GLUCOSE 145 mg/dL (70-100); SODIUM 143 mEq/L (134-144); TOTAL PROTEIN 7.7 g/dL (6.3-8.2)
[2016-08-03 10:47] LABS: TROPONIN I < 0.012 ng/mL (0-0.034)
[2016-08-03] MEDS ORDERED: IOPAMIDOL (ISOVUE-300) 100 ML BTL ONE (10:54)
[2016-08-03 10:55] LABS: COLOR YELLOW; LEUKOCYTE ESTERASE,URINE 3+ (NEGATIVE); NITRITE,URINE NEGATIVE (NEGATIVE)
[2016-08-03 10:58] LABS: BACTERIA TRACE /hpf (NONE SEEN); MUCUS TRACE /lpf (NONE-1+); WBC,URINE 50-182 /hpf (0-3)
[2016-08-03 12:04] VITALS: BP 124/67; PULSE 73; RESP 16; O2SAT 98
[2016-08-03 12:36] VITALS: TEMP 98.2
== END 2016-08-03 12:35 | disposition home or self-care (01) ==
DX: N39.0 Urinary tract infection, site not specified (principal); B96.89 Other specified bacterial agents as the cause of diseases classified elsewhere; J45.909 Unspecified asthma, uncomplicated; E10.9 Type 1 diabetes mellitus without complications; Z79.82 Long term (current) use of aspirin
CPT/HCPCS: 71010; 74177; 93005; 96361; 96365; 99285; J0696; Q9967

== ENCOUNTER 2016-11-16 17:26 | Emergency (ER) | payer OTHER, MEDICAID ==
[2016-11-16 17:39] VITALS: RESP 16; TEMP 97.9; O2SAT 95
--- NOTE | 2016-11-16 17:47 | CPEKG ---
Heart Rate: 88 RR Interval: 682 P-R Interval: 160 QRSD Interval: 92 QT Interval: 388 QTC Interval: 470 P [place]: 16 QRS [place]: -50 T Wave [place]: 24 EKG Severity - ABNORMAL ECG - EKG Impression: SINUS RHYTHM EKG Impression: LEFT ANTERIOR FASCICULAR BLOCK EKG Impression: CONSIDER ANTERIOR INFARCT Electronically Signed By: Elijah Talbot 16-Nov-2016 23:03:41
[2016-11-16] MEDS ORDERED: NS 500 ML IV ONE (18:31)
--- NOTE | 2016-11-16 18:31 | EDPHY ---
General Narrative: CHIEF COMPLAINT: Syncope after donating blood HISTORY OF PRESENT ILLNESS: Patient complains of syncopal episode after donating blood. This was approximately 3:30 p.m.. She donated blood for the 1st time ever. She then ambulated to the bus stop. She felt lightheaded, diaphoretic, warm and clammy and fell to the ground. She was able to lower herself about injury. Brief loss of consciousness. She then felt better and got up and walking to the bus. She then began to feel lightheaded again. She did not lose consciousness but called EMS. Glucose was reportedly normal in route. She has had no chest pain REVIEW OF SYSTEMS: Ten systems reviewed and are negative unless otherwise noted in the HPI PAST MEDICAL HISTORY: Hypertension, dyslipidemia, diabetes PAST SURGICAL HISTORY: Reviewed SOCIAL HISTORY: Nonsmoker. Lives in [place]. Works as a [employer] FAMILY HISTORY: Noncontributory EXAMINATION General Appearance: Alert, no distress Head: normocephalic, atraumatic Eyes: Pupils equal and round, no conjunctival pallor or injection ENT, Mouth: Mucous membranes moist Neck: Normal inspection, supple, non-tender Respiratory: Lungs are clear to auscultation Cardiovascular: Regular rate and rhythm. No murmur. Pulses intact distally Gastrointestinal: Abdomen is soft and nontender Back: non-tender, no bony abnormalities Neurological: GCS 15. A&O, nonfocal, normal steady gait. Strength symmetric in all 4 limbs. No pronator drift. No dysmetria. Skin: Warm and dry, no rash. No petechiae or purpura Extremities: Nontender, no pedal edema Psychiatric: Mood and affect normal DIFFERENTIAL DIAGNOSES: Including but not limited to vasovagal episode, hypertension, dehydration, anemia, ACS, syncope MDM: 6:30 p.m. Syncopal episode after donating blood with subsequent near syncopal episode. No chest pain. Vital signs stable. She is an insulin-dependent diabetic with reportedly normal blood sugar and route at 144 mg/dL. I will recheck this now and check baseline laboratory studies. Also bolus her with IV fluid. Her vital signs are stable without hypotension. She is awake alert no acute distress. 7:15 p.m. Laboratory studies from the initial blood draw in route are within normal limits. Blood glucose is 147. Repeat fingerstick blood sugar after the initial blood draw is also within normal limits. She is asymptomatic. Ambulate and plan for discharge home. She is in no acute distress and comfortable this plan. 7:35 p.m. Patient has ambulated with assistance and without difficulty. She is stable for discharge home. She is comfortable with this. Suspect vasovagal response to blood draw. Discussed prophylaxis for this in the future. Follow up with primary care physician. ED precautions discussed. - History Smoking Status: Never smoked - Objective Vital Signs: Initial Vital Signs Temperature (C) 97.9 F 11/16/16 17:33 Heart Rate 82 11/16/16 17:33 Respiratory Rate 16 11/16/16 17:33 Blood Pressure 142/77 H 11/16/16 17:33 O2 Sat (%) 95 11/16/16 17:33 O2 Delivery Mode Room Air Allergies/Adverse Reactions: diphenhydramine HCl [From Benadryl] Allergy (Mild, Verified 08/03/16 09:08) RACING HEART RATE Home Medications: Medication Instructions Recorded Aspirin [Aspirin 81mg (*)] 81 mg PO HS 04/12/16 Atorvastatin Calcium [Lipitor 20 20 mg PO HS 04/12/16 mg (*)] Herbals/Supplements -Info Only 1 ea PO DAILY 04/12/16 Insulin Glargine [Lantus 100 47 units SC HS 04/12/16 UNITS/ML (*)] Levothyroxine [Synthroid 100 mcg 100 mcg PO DAILY06 04/12/16 (*)] Lisinopril [Zestril 5 mg (*)] 5 mg PO DAILY 04/12/16 Multivitamins [Multivitamin (*)] 1 each PO DAILY 04/12/16 cloZAPine [Clozaril (*)] 100 mg PO HS 04/12/16 metFORMIN HCL [Glucophage 500 mg 1,000 mg PO BIDMEAL 04/12/16 (*)] sitaGLIPtin PHOSPHATE [Januvia 100 100 mg PO DAILY 04/12/16 MG (*)] Cephalexin [Keflex (*)] 500 mg PO TID #30 cap 08/03/16 Laboratory Results: Laboratory Results 11/16/16 17:48 11/16/16 17:48 11/16/16 11/16/16 17:48 17:48 WBC 10.04 10^3/uL H 10^3/uL (3.80-9.50) RBC 4.39 10^6/uL 10^6/uL (4.18-5.33) Hgb 12.8 g/dL g/dL (12.6-16.3) Hct 38.1 % % (38.0-47.0) MCV 86.8 fL fL (81.5-99.8) MCH 29.2 pg pg (27.9-34.1) MCHC 33.6 g/dL g/dL (32.4-36.7) RDW 13.7 % % (11.5-15.2) Plt Count 268 10^3/uL 10^3/uL (150-400) MPV 10.3 fL fL (8.7-11.7) Neut % (Auto) 50.6 % % (39.3-74.2) Lymph % (Auto) 39.2 % % (15.0-45.0) [place] % (Auto) 5.5 % % (4.5-13.0) Eos % (Auto) 3.7 % % (0.6-7.6) Baso % (Auto) 0.7 % % (0.3-1.7) Nucleat RBC Rel Count 0.0 % % (0.0-0.2) Absolute Neuts (auto) 5.08 10^3/uL 10^3/uL (1.70-6.50) Absolute Lymphs (auto) 3.94 10^3/uL H 10^3/uL (1.00-3.00) Absolute Monos (auto) 0.55 10^3/uL 10^3/uL (0.30-0.80) Absolute Eos (auto) 0.37 10^3/uL 10^3/uL (0.03-0.40) Absolute Basos (auto) 0.07 10^3/uL 10^3/uL (0.02-0.10) Absolute Nucleated RBC 0.00 10^3/uL 10^3/uL (0-0.01) Immature Gran % 0.3 % % (0.0-1.1) Immature Gran # 0.03 10^3/uL 10^3/uL (0.00-0.10) Sodium 139 mEq/L mEq/L (134-144) Potassium 3.8 mEq/L mEq/L (3.5-5.2) Chloride 107 mEq/L mEq/L (97-110) Carbon Dioxide 18 mEq/l L mEq/l (22-31) Anion Gap 14 mEq/L mEq/L (8-16) BUN 17 mg/dL mg/dL (7-23) Creatinine 0.9 mg/dL mg/dL (0.6-1.0) Estimated GFR > 60 Glucose 143 mg/dL H mg/dL (70-100) Calcium 9.6 mg/dL mg/dL (8.5-10.4) Troponin I < 0.012 ng/mL ng/mL (0.000-0.034) Medications Given: Discontinued Medications Sodium Chloride (Ns) 500 mls @ 0 mls/hr IV EDNOW ONE; Wide Open PRN Reason: Protocol Stop: 11/16/16 18:32 Last Admin: 11/16/16 18:39 Dose: 500 mls Departure - Departure Disposition: Home, Routine, Self-Care Clinical Impression: Vasovagal syncope Condition: Good Instructions: Syncope (ED) Additional Instructions: 1. Increase fluid intake 2. Light activity for the next 24 hours 3. ED precautions for any chest pain turn of syncope 4. Follow up with primary care physician Referrals: Fidelina Acosta MD [Primary Care Provider] - As per Instructions Stand Alone Forms: Work Excuse
[2016-11-16 18:49] LABS: % IMMATURE GRANULYOCYTES 0.3 % (0.0-1.1); ABSOLUTE IMMATURE GRANULOCYTES 0.03 10^3/uL (0.00-0.10); ADD DIFF? NO; ADD MORPH? NO; ADD SCAN? NO; ATYPICAL LYMPHOCYTE FLAG 0 (0-99); FRAGMENT RBC FLAG 0 (0-99); HEMATOCRIT 38.1 % (38.0-47.0); HEMOGLOBIN 12.8 g/dL (12.6-16.3); LEFT SHIFT FLG 0 (0-99); LIPEMIA HEMOLYSIS FLAG 80 (0-99); MEAN CELL HEMOGLOBIN 29.2 pg (27.9-34.1); MEAN CELL HEMOGLOBIN CONCENTR. 33.6 g/dL (32.4-36.7); MEAN CELL VOLUME 86.8 fL (81.5-99.8); MEAN PLATELET VOLUME 10.3 fL (8.7-11.7); PLATELET CLUMPS FLAG 0 (0-99); PLATELET COUNT 268 10^3/uL (150-400); RED BLOOD CELL COUNT 4.39 10^6/uL (4.18-5.33); RED CELL DISTRIBUTION WIDTH 13.7 % (11.5-15.2)
[2016-11-16 18:56] VITALS: BP 137/95; PULSE 78
[2016-11-16 18:58] LABS: ANION GAP 14 mEq/L (8-16); CALCIUM 9.6 mg/dL (8.5-10.4); CARBON DIOXIDE 18 mEq/l (22-31); CHLORIDE 107 mEq/L (97-110); CREATININE 0.9 mg/dL (0.6-1.0); GLOMERULAR FILTRATION RATE > 60; GLUCOSE 143 mg/dL (70-100); POTASSIUM 3.8 mEq/L (3.5-5.2); SODIUM 139 mEq/L (134-144)
[2016-11-16 19:09] LABS: TROPONIN I < 0.012 ng/mL (0.000-0.034)
== END 2016-11-16 19:47 | disposition home or self-care (01) ==
LOC: EDUNIT#
DX: R55 Syncope and collapse (principal); E86.9 Volume depletion, unspecified; I10 Essential (primary) hypertension; E11.9 Type 2 diabetes mellitus without complications; Z79.4 Long term (current) use of insulin; Z79.82 Long term (current) use of aspirin; Z79.84 Long term (current) use of oral hypoglycemic drugs

== ENCOUNTER → 2017-06-15 | Outpatient (CLI) | payer OTHER, MEDICAID | LOC: FIMAGING 16:50 | PROVIDERS: ATTEND Family Medicine | DX: I82.492 Acute embolism and thrombosis of other specified deep vein of left lower extremity (principal); I82.812 Embolism and thrombosis of superficial veins of left lower extremity ==

== ENCOUNTER → 2017-06-28 | Outpatient (CLI) | payer OTHER, MEDICAID | LOC: FIMAGING 08:32 | PROVIDERS: ATTEND Family Medicine | DX: Z12.31 Encounter for screening mammogram for malignant neoplasm of breast (principal) ==

== ENCOUNTER 2017-07-22 21:39 | Emergency (ER) | payer OTHER, MEDICAID ==
[2017-07-22] MEDS ORDERED: NS 1,000 ML IV ONE (22:01)
[2017-07-22] MEDS ORDERED: PROMETHAZINE HCL 25 MG/ML INJ IVP ONE (22:03)
--- NOTE | 2017-07-22 22:07 | EDPHY ---
H & P Stated Complaint: dizziness, nausea, vertigo Source: Patient Exam Limitations: No limitations - Personal History Current Tetanus Diphtheria and Acellular Pertussis (TDAP): Yes - Medical/Surgical History Hx Asthma: Yes Hx Chronic Respiratory Disease: No Hx Diabetes: Yes Hx Cardiac Disease: No Hx Renal Disease: No Hx Cirrhosis: No Hx Alcoholism: No Hx HIV/AIDS: No Hx Splenectomy or Spleen Trauma: No Other PMH: Diabetes type I, asthma, hyperlipidemia, "heart problems", schizo- affective, bipolar - Social History Smoking Status: Never smoked Time Seen by Provider: 07/22/17 21:46 HPI/ROS: HPI: This is a 56-year-old female who presents with Chief Complaint: dizziness, nausea, vertigo Location: Head Quality: Dizziness, nausea, vertigo Duration: Today Signs and Symptoms: no fever, no nausea, no vomiting, no photophobia, no noise sensitivity, no neck stiffness, no ear pain, no tinnitus, no nasal congestion, no sinus pressure, no weakness, no radiation, no aura Timing: Acute Severity: Moderate Context: Patient presents via EMS with complaints of the room spinning and dizziness since this afternoon approximately 3-5 hours. Patient reports that when she moves her head back and forth or ago moved from sitting to standing positions her dizziness increases. Further questioning shows that patient suffers from seasonal allergies and has had nasal congestion with runny nose for the past 7 days. Today there has been a barometric pressure change and it has been raining. Patient was started 2 weeks ago on Xarelto for left lower extremity DVT. She is currently taking Xarelto 20 mg daily she has a history of diabetes mellitus and reports that her sugar today as been running in the 190. Denies any focal weakness/speech changes/neck stiffness. Patient reports that she suffered from dizziness and vertigo in the past but has been several years. Denies urinary symptoms. Patient reports that a similar occurrence of dizziness occurred approximately 2 months ago that lasted for 1 or 2 days and self resolved. Modifying Factors: Patient was given oral Zofran by EMS en route with improvement of symptoms. Comment: ROS: see HPI Constitutional: No fever, no chills, no weight loss Eyes: No blurred vision Respiratory: No shortness of breath, no cough Cardiovascular: No chest pain, no palpitations Gastrointestinal: No nausea, no vomiting, no diarrhea, no hematemesis, no blood in stool Genitourinary: No dysuria, no blood in urine Extremities: No myalgias, no edema Neurologic: No weakness, no numbness Skin: No rashes, no petechiae Hematologic: No bruising, no bleeding MEDICAL/SURGICAL/SOCIAL HISTORY: Medical history: Diabetes type I, asthma, hyperlipidemia, "heart problems", schizo-affective, bipolar, DVT left lower extremity Surgical history: Denies Social history: Disabled. Non-smoker. Family history noncontributory. CONSTITUTIONAL: Extremely well-appearing middle-aged white female, awake and alert, no obvious distress HEENT: Atraumatic and normocephalic, PERRL, EOMI. Nares patent; no rhinorrhea; no nasal mucosal edema. Tympanic membranes clear. Oropharynx clear, no exudate and moist pink mucosa. Airway patent. No lymphadenopathy. No meningismus. No carotid bruits appreciated. Cardiovascular: Normal S1/S2, regular rate, regular rhythm, without murmur rub or gallop. PULMONARY/CHEST: Symmetrical and nontender. Clear to auscultation bilaterally. Good air movement. No accessory muscle usage. ABDOMEN: Soft, nondistended, nontender, no rebound, no guarding, no peritoneal signs, no masses or organomegaly. No CVAT. EXTREMITIES: 2/2 pulses, strength 5/5, no deformities, no clubbing, no cyanosis or edema. NEUROLOGICAL: no focal neuro deficits. GCS 15. Dizziness reproducible with turning head to the side to side and Maurilio-Hallpike maneuver; nystagmus noted. SKIN: Warm and dry, no erythema. no rash. Good capillary refill. (ShowellDiamante) Constitutional: Initial Vital Signs Temperature (C) 36.8 C 07/22/17 21:50 Heart Rate 95 07/22/17 21:50 Respiratory Rate 18 07/22/17 21:50 Blood Pressure 158/73 H 07/22/17 21:50 O2 Sat (%) 96 07/22/17 21:50 O2 Delivery Mode Room Air Allergies/Adverse Reactions: diphenhydramine HCl [From Benadryl] Allergy (Mild, Verified 08/03/16 09:08) RACING HEART RATE Home Medications: Medication Instructions Recorded Aspirin [Aspirin 81mg (*)] 81 mg PO HS 04/12/16 Atorvastatin Calcium [Lipitor 20 20 mg PO HS 04/12/16 mg (*)] Herbals/Supplements -Info Only 1 ea PO DAILY 04/12/16 Insulin Glargine [Lantus 100 47 units SC HS 04/12/16 UNITS/ML (*)] Levothyroxine [Synthroid 100 mcg 100 mcg PO DAILY06 04/12/16 (*)] Lisinopril [Zestril 5 mg (*)] 5 mg PO DAILY 04/12/16 Multivitamins [Multivitamin (*)] 1 each PO DAILY 04/12/16 cloZAPine [Clozaril (*)] 100 mg PO HS 04/12/16 metFORMIN HCL [Glucophage 500 mg 1,000 mg PO BIDMEAL 04/12/16 (*)] sitaGLIPtin PHOSPHATE [Januvia 100 100 mg PO DAILY 04/12/16 MG (*)] Cephalexin [Keflex (*)] 500 mg PO TID #30 cap 08/03/16 Promethazine HCl [Phenergan 12.5mg 12.5 mg PO Q6 PRN #12 tablet 07/22/17 tab] Medical Decision Making ED Course/Re-evaluation: Vital signs reviewed upon arrival and stable. Will obtain laboratory studies and give 1 L normal saline along with IV promethazine 25 mg No signs of infection/focal weakness/trauma Patient had reproducible symptoms with nystagmus when Maurilio-Hallpike maneuver performed negative HINTS exam with low likelihood of central lesion. No indication to be performed for MRI 2245: Labs reviewed. No signs of leukocytosis/MARIA ELENA/electrolyte imbalance. INR is 2. + mild microcytic anemia noted. 2300: Reassessed patient who reports dizziness and nausea resolved. Road test performed. No signs of otitis media/sinusitis/meningitis/DKA/CVA Suspect barometric pressure change combined with viral upper respiratory symptoms. 2310: Road test was successful and patient able to walk more than 25 ft without any assistance. Patient asking to be discharged home. Prepack of promethazine and prescription for same given. This patient was seen under the supervision of my secondary supervising physician. I evaluated care for this patient independently. Discussed this patient with Dr. Rouse who did not see the patient. (Diamante Valdez) PHYSICIAN DOCUMENTATION: The patient was evaluated and managed by the Physician Adding Machine Servicer. My co- signature indicates that I have reviewed this chart and I agree with the findings and plan of care as documented. I am the secondary supervising physician. (Sirena Rouse) Differential Diagnosis: Dizziness including but not limited to peripheral and central causes of vertigo , orthostatic causes including dehydration, and blood loss. (Diamante Valdez) - Data Points Laboratory Results: Laboratory Results 07/22/17 21:45 18 21:45 07/22/1718 07/22/17 21:45 21:45 21:45 WBC 9.69 10^3/uL H 10^3/uL (3.80-9.50) RBC 4.52 10^6/uL 10^6/uL (4.18-5.33) Hgb 11.3 g/dL L g/dL (12.6-16.3) Hct 36.2 % L % (38.0-47.0) MCV 80.1 fL L fL (81.5-99.8) MCH 25.0 pg L pg (27.9-34.1) MCHC 31.2 g/dL L g/dL (32.4-36.7) RDW 16.1 % H % (11.5-15.2) Plt Count 363 10^3/uL 10^3/uL (150-400) MPV 9.7 fL fL (8.7-11.7) Neut % (Auto) 45.5 % % (39.3-74.2) Lymph % (Auto) 38.2 % % (15.0-45.0) [place] % (Auto) 7.7 % % (4.5-13.0) Eos % (Auto) 7.5 % % (0.6-7.6) Baso % (Auto) 0.8 % % (0.3-1.7) Nucleat RBC Rel Count 0.0 % % (0.0-0.2) Absolute Neuts (auto) 4.40 10^3/uL 10^3/uL (1.70-6.50) Absolute Lymphs (auto) 3.70 10^3/uL H 10^3/uL (1.00-3.00) Absolute Monos (auto) 0.75 10^3/uL 10^3/uL (0.30-0.80) Absolute Eos (auto) 0.73 10^3/uL H 10^3/uL (0.03-0.40) Absolute Basos (auto) 0.08 10^3/uL 10^3/uL (0.02-0.10) Absolute Nucleated RBC 0.00 10^3/uL 10^3/uL (0-0.01) Immature Gran % 0.3 % % (0.0-1.1) Immature Gran # 0.03 10^3/uL 10^3/uL (0.00-0.10) PT 23.6 SEC H SEC (12.0-15.0) INR 2.10 H (0.83-1.16) APTT 38.7 SEC H SEC (23.0-38.0) Sodium 141 mEq/L mEq/L (135-145) Potassium 3.9 mEq/L mEq/L (3.3-5.0) Chloride 103 mEq/L mEq/L (97-110) Carbon Dioxide 23 mEq/l mEq/l (22-31) Anion Gap 15 mEq/L mEq/L (8-16) BUN 19 mg/dL mg/dL (7-23) Creatinine 0.9 mg/dL mg/dL (0.6-1.0) Estimated GFR > 60 Glucose 179 mg/dL H mg/dL (70-100) Calcium 9.2 mg/dL mg/dL (8.5-10.4) Medications Given: Discontinued Medications Sodium Chloride (Ns) 1,000 mls @ 0 mls/hr IV ONCE ONE; Wide Open PRN Reason: Protocol Stop: 07/22/17 22:02 Last Admin: 07/22/17 22:07 Dose: 1,000 mls Promethazine HCl (Phenergan) 25 mg IVP EDNOW ONE Stop: 07/22/17 22:04 Last Admin: 07/22/17 22:08 Dose: 12.5 mg Promethazine HCl (Phenergan 25 Mg Prepack #4) 1 btl TAKEHOME EDNOW ONE Stop: 07/22/17 23:10 Last Admin: 07/22/17 23:16 Dose: 1 btl Departure - Departure Disposition: Home, Routine, Self-Care Clinical Impression: BPPV (benign paroxysmal positional vertigo) Condition: Good Instructions: Promethazine (Into the rectum), Benign Paroxysmal Positional Vertigo (ED), Dizziness (ED) Additional Instructions: Medication: Meds/Immunizations given in the ED: Promethazine Medication prescribed: Promethazine Take medication as directed for nausea, dizziness. Your medication may make you drowsy. Do not drive, operate machinery or drink alcoholic beverages while taking it. Referrals: PCP Not In,Dictionary [Medical Doctor] - 3-4 days, if not improved Prescriptions: Promethazine HCl [Phenergan 12.5mg tab] 12.5 mg PO Q6 PRN #12 tablet PRN Reason: Nausea/Vomiting, Use 1st
[2017-07-22 22:13] LABS: PLATELET COUNT 363 10^3/uL (150-400)
[2017-07-22 22:25] LABS: INR 2.1 (0.83-1.16); PROTIME(PATIENT) 23.6 SEC (12.0-15.0)
[2017-07-22 23:04] VITALS: BP 141/82
[2017-07-22] MEDS ORDERED: PROMETHAZINE 25 MG PREPACK #4 BTL TAKEHOME ONE (23:09)
== END 2017-07-22 23:29 | disposition home or self-care (01) ==
LOC: EDUNIT#
DX: H81.10 Benign paroxysmal vertigo, unspecified ear (principal); E10.9 Type 1 diabetes mellitus without complications; J45.909 Unspecified asthma, uncomplicated; Z79.82 Long term (current) use of aspirin
CPT/HCPCS: 96361; 96374; 99284; J2550

== ENCOUNTER 2017-07-24 14:08 | Emergency (ER) | payer OTHER, MEDICAID ==
--- NOTE | 2017-07-24 14:34 | CPEKG ---
Heart Rate: 76 RR Interval: 789 P-R Interval: 148 QRSD Interval: 92 QT Interval: 400 QTC Interval: 450 P Sidell: 14 QRS Sidell: -40 T Wave Sidell: 21 EKG Severity - ABNORMAL ECG - EKG Impression: SINUS RHYTHM EKG Impression: LEFT ANTERIOR FASCICULAR BLOCK EKG Impression: CONSIDER LEFT VENTRICULAR HYPERTROPHY Electronically Signed By: Travis Felder 26-Jul-2017 06:10:22
--- NOTE | 2017-07-24 15:27 | EDPHY ---
H & P Time Seen by Provider: 07/24/17 14:26 HPI/ROS: CHIEF COMPLAINT: Dizziness, near-syncope HISTORY OF PRESENT ILLNESS: The patient is a 56-year-old female who presents to the emergency department with ongoing dizziness and vertigo. The patient was seen in the emergency department on 07/22/2017. Patient states she has felt better after visit. Patient states she went home and went to sleep. However, upon waking the next morning she again had symptoms of vertigo. She states that was slightly worse with head movement. She had no focal weakness or numbness. Patient reports a mild headache. Mild nausea with no vomiting. No recent trauma. No fevers or chills. REVIEW OF SYSTEMS: My complete review of systems is negative except as mentioned in the HPI. Past Medical/Surgical History: Includes diabetes, asthma, hyperlipidemia,"heart problems", schizoaffective disorder, bipolar disorder Smoking Status: Never smoked Physical Exam: Vitals noted GENERAL: Well-appearing, in no acute distress, alert. HEENT: Eyes normal to inspection, normal pharynx, no signs of dehydration. No nystagmus NECK: No thyromegaly, no lymphadenopathy, supple. RESPIRATORY: Clear to auscultation bilaterally, no rales, rhonchi or wheezing. CVS: Regular rate and rhythm, no rubs, murmurs, or gallops. ABDOMEN: Soft, nontender, nondistended, no organomegaly. BACK: Normal to inspection, no CVA tenderness. SKIN: Normal color, no rash, warm, dry. No pallor. EXTREMITIES: No pedal edema, no calf tenderness, no Homans sign or cords, no joint swelling. NEURO/PSYCH: Higher functions: Alert and Oriented x3. Normal speech and cognition. Normal mood and affect. Cranial nerves: Normal as tested. Cerebellar: Normal as tested. Good finger to nose, good [id number], normal gait. Peripheral exam: Normal motor exam. Normal sensation. Normal reflexes. Constitutional: Initial Vital Signs Temperature (C) 36.9 C 07/24/17 14:59 Heart Rate 86 07/24/17 14:59 Respiratory Rate 16 07/24/17 14:59 Blood Pressure 147/85 H 07/24/17 14:59 O2 Sat (%) 100 07/24/17 14:59 O2 Delivery Mode Room Air Allergies/Adverse Reactions: diphenhydramine HCl [From Benadryl] Allergy (Mild, Verified 08/03/16 09:08) RACING HEART RATE Home Medications: Medication Instructions Recorded Aspirin [Aspirin 81mg (*)] 81 mg PO HS 04/12/16 Atorvastatin Calcium [Lipitor 20 20 mg PO HS 04/12/16 mg (*)] Herbals/Supplements -Info Only 1 ea PO DAILY 04/12/16 Insulin Glargine [Lantus 100 47 units SC HS 04/12/16 UNITS/ML (*)] Levothyroxine [Synthroid 100 mcg 100 mcg PO DAILY06 04/12/16 (*)] Lisinopril [Zestril 5 mg (*)] 5 mg PO DAILY 04/12/16 Multivitamins [Multivitamin (*)] 1 each PO DAILY 04/12/16 cloZAPine [Clozaril (*)] 100 mg PO HS 04/12/16 metFORMIN HCL [Glucophage 500 mg 1,000 mg PO BIDMEAL 04/12/16 (*)] sitaGLIPtin PHOSPHATE [Januvia 100 100 mg PO DAILY 04/12/16 MG (*)] Cephalexin [Keflex (*)] 500 mg PO TID #30 cap 08/03/16 Promethazine HCl [Phenergan 12.5mg 12.5 mg PO Q6 PRN #12 tablet 07/22/17 tab] Meclizine HCl [Meclizine HCl 25 mg 25 mg PO TID #11 tab 07/24/17 (RX,OTC)] Medical Decision Making - Diagnostics EKG Interpretation: Sinus rhythm at 76. Left anterior fascicular block. No ST or T-wave abnormality. Imaging Results: Imaging Impressions Brain MRI 07/24/17 15:29 Impression: Normal MRI of the brain without contrast. Results called to Dr. Gege Bazan at 4:50 PM. ED Course/Re-evaluation: In the emergency department I discussed possible etiologies with the patient. I answered all her questions. She was given meclizine 25 mg orally. This is patient's 2nd visit to the emergency department. It was noted that she had nystagmus and symptoms on Hallpike maneuver. There was no nystagmus today. Because of this an MRI was ordered. Rechecked the patient while here. She was stable. She had no new complaints. Patient's white count is 9.5. Hematocrit is 38. Platelet count is 384. Patient 's chemistry panel is notable for a low CO2 to at 20. Anion gap is mildly elevated 18. Troponin is negative. MRI brain: Please refer the dictated report by Dr. Robles. No acute disease noted. I rechecked the patient prior to leaving. She was feeling much better. She had no focal neurologic deficits. I doubt acute ischemia or malignant arrhythmia. The patient will be discharged with meclizine. She is given warnings prior to leaving. She will return with worsening symptoms. Differential Diagnosis: My differential includes but is not limited to ischemic CVA, hemorrhagic CVA, dissection, aneurysm, electrolyte abnormality, sugar abnormality, peripheral vertigo - Data Points Laboratory Results: Laboratory Results 07/24/17 15:45 07/24/17 15:45 07/24/17 07/24/17 15:45 15:45 WBC 9.50 10^3/uL 10^3/uL (3.80-9.50) RBC 4.75 10^6/uL 10^6/uL (4.18-5.33) Hgb 11.8 g/dL L g/dL (12.6-16.3) Hct 38.0 % % (38.0-47.0) MCV 80.0 fL L fL (81.5-99.8) MCH 24.8 pg L pg (27.9-34.1) MCHC 31.1 g/dL L g/dL (32.4-36.7) RDW 16.2 % H % (11.5-15.2) Plt Count 384 10^3/uL 10^3/uL (150-400) MPV 9.7 fL fL (8.7-11.7) Neut % (Auto) 69.3 % % (39.3-74.2) Lymph % (Auto) 23.4 % % (15.0-45.0) [place] % (Auto) 5.3 % % (4.5-13.0) Eos % (Auto) 1.1 % % (0.6-7.6) Baso % (Auto) 0.8 % % (0.3-1.7) Nucleat RBC Rel Count 0.0 % % (0.0-0.2) Absolute Neuts (auto) 6.59 10^3/uL H 10^3/uL (1.70-6.50) Absolute Lymphs (auto) 2.22 10^3/uL 10^3/uL (1.00-3.00) Absolute Monos (auto) 0.50 10^3/uL 10^3/uL (0.30-0.80) Absolute Eos (auto) 0.10 10^3/uL 10^3/uL (0.03-0.40) Absolute Basos (auto) 0.08 10^3/uL 10^3/uL (0.02-0.10) Absolute Nucleated RBC 0.00 10^3/uL 10^3/uL (0-0.01) Immature Gran % 0.1 % % (0.0-1.1) Immature Gran # 0.01 10^3/uL 10^3/uL (0.00-0.10) Sodium 144 mEq/L mEq/L (135-145) Potassium 4.2 mEq/L mEq/L (3.3-5.0) Chloride 106 mEq/L mEq/L (97-110) Carbon Dioxide 20 mEq/l L mEq/l (22-31) Anion Gap 18 mEq/L H mEq/L (8-16) BUN 16 mg/dL mg/dL (7-23) Creatinine 0.8 mg/dL mg/dL (0.6-1.0) Estimated GFR > 60 Glucose 127 mg/dL H mg/dL (70-100) Calcium 9.3 mg/dL mg/dL (8.5-10.4) Troponin I < 0.012 ng/mL ng/mL (0.000-0.034) Medications Given: Discontinued Medications Sodium Chloride (Ns) 1,000 mls @ 0 mls/hr IV ONCE ONE; Wide Open PRN Reason: Protocol Stop: 07/24/17 15:30 Last Admin: 07/24/17 16:37 Dose: 1,000 mls Departure - Departure Disposition: Home, Routine, Self-Care Clinical Impression: Vertigo, Near syncope Condition: Good Instructions: Vertigo (ED), Near Syncope (ED) Additional Instructions: Return with increasing headache, dizziness, incoordination or any other concerns. Referrals: Fidelina Acosta MD [Primary Care Provider] - 2-3 days, if not improved Prescriptions: Meclizine HCl [Meclizine HCl 25 mg (RX,OTC)] 25 mg PO TID #11 tab
[2017-07-24] MEDS ORDERED: NS 1,000 ML IV ONE (15:29)
[2017-07-24 16:01] LABS: PLATELET COUNT 384 10^3/uL (150-400)
[2017-07-24 17:21] VITALS: BP 162/65
== END 2017-07-24 17:15 | disposition home or self-care (01) ==
LOC: EDUNIT#
DX: R42 Dizziness and giddiness (principal); R55 Syncope and collapse; E86.9 Volume depletion, unspecified; E11.9 Type 2 diabetes mellitus without complications; J45.909 Unspecified asthma, uncomplicated; Z79.4 Long term (current) use of insulin; Z79.82 Long term (current) use of aspirin

== ENCOUNTER 2017-11-09 23:10 | Emergency (ER) | payer OTHER, MEDICAID ==
[2017-11-09] MEDS ORDERED: TDAP ADULT 0.5 ML INJ (BOOSTRIX) IM ONE (23:17)
--- NOTE | 2017-11-09 23:19 | EDPHY ---
H & P Stated Complaint: head injury Time Seen by Provider: 11/09/17 23:16 HPI/ROS: HPI: The patient presents with a fall, hitting her head with brief LO C. The patient is brought in by ambulance, fall happened about 15 min prior to arrival. She was about to sit in a chair, then realized CT was in the chair so she tried to move out of the way and hit her head on an end table. She says that things went dark and then she saw stars for just a few seconds. She then felt fine. She has had no dizziness, diaphoresis, chest pain, shortness of breath. She is on Xarelto and aspirin 81 mg daily for a heart condition. REVIEW OF SYSTEMS Constitutional: No fever, no chills. Eyes: No discharge. ENT: No sore throat. Cardiovascular: No chest pain, no palpitations. Respiratory: No cough, no shortness of breath. Gastrointestinal: No abdominal pain, no vomiting. Genitourinary: No hematuria. Musculoskeletal: No back pain. Skin: No rashes. Neurological: No headache. PMHx: Diabetes, he schizoaffective disorder, bipolar disorder, cardiac condition requiring Xarelto TRAUMA PHYSICAL General Appearance: Alert, no distress Head: Right posterior occiput with 2 cm non gaping laceration with no active bleeding and no hematoma Eyes: Pupils equal, round, reactive ENT, Mouth: No hemotypanium, no oral trauma Neck: Non- tender, trachea midline Respiratory: No chest wall tenderness, no subcutaneous air, lungs clear bilaterallty Cardiovascular: Regular rate and rhythm Abdomen: Abdomen is soft and non-tender, pelvis stable Skin: No lacerations, No abrasion Back: No midline T/L/S pain Extremities: Non-tender, full range of motion Neurological: A&Ox3, GCS=15,normal motor function with 5/5 strength in all 4 extremities, normal sensory exam Source: Patient Exam Limitations: No limitations - Medical/Surgical History Hx Asthma: Yes Hx Chronic Respiratory Disease: No Hx Diabetes: Yes Hx Cardiac Disease: No Hx Renal Disease: No Hx Cirrhosis: No Hx Alcoholism: No Hx HIV/AIDS: No Hx Splenectomy or Spleen Trauma: No Other PMH: Diabetes type I, asthma, hyperlipidemia, "heart problems", schizo- affective, bipolar, anticoagulated "doesnt know why" - Social History Smoking Status: Never smoked Constitutional: Initial Vital Signs Temperature (C) 36.8 C 11/10/17 01:19 Heart Rate 80 11/10/17 01:19 Respiratory Rate 16 11/10/17 01:19 Blood Pressure 142/81 H 11/10/17 01:19 O2 Sat (%) 95 11/10/17 01:19 O2 Delivery Mode Room Air Allergies/Adverse Reactions: diphenhydramine HCl [From Benadryl] Allergy (Mild, Verified 11/09/17 23:23) RACING HEART RATE Home Medications: Medication Instructions Recorded Aspirin [Aspirin 81mg (*)] 81 mg PO HS 04/12/16 Atorvastatin Calcium [Lipitor 20 20 mg PO HS 04/12/16 mg (*)] Herbals/Supplements -Info Only 1 ea PO DAILY 04/12/16 Insulin Glargine [Lantus 100 47 units SC HS 04/12/16 UNITS/ML (*)] Levothyroxine [Synthroid 100 mcg 100 mcg PO DAILY06 04/12/16 (*)] Lisinopril [Zestril 5 mg (*)] 5 mg PO DAILY 04/12/16 Multivitamins [Multivitamin (*)] 1 each PO DAILY 04/12/16 cloZAPine [Clozaril (*)] 100 mg PO HS 04/12/16 metFORMIN HCL [Glucophage 500 mg 1,000 mg PO BIDMEAL 04/12/16 (*)] sitaGLIPtin PHOSPHATE [Januvia 100 100 mg PO DAILY 04/12/16 MG (*)] Cephalexin [Keflex (*)] 500 mg PO TID #30 cap 08/03/16 Promethazine HCl [Phenergan 12.5mg 12.5 mg PO Q6 PRN #12 tablet 07/22/17 tab] Meclizine HCl [Meclizine HCl 25 mg 25 mg PO TID #11 tab 07/24/17 (RX,OTC)] Medical Decision Making - Diagnostics EKG Interpretation: EKG: Complete interpretation has been separately recorded in the [facility] archive. Summary impression: Normal sinus rhythm Imaging Results: Imaging Impressions Head CT 11/09/17 23:17 Impression: No evidence for acute intracranial abnormality. Results called and discussed with Sirena Rouse MD at 11/09/2017 23:41. Imaging: Discussed imaging studies w/ software test technician Radiologist Procedures: LACERATION REPAIR Procedure: Laceration repair. Verbal consent was obtained from the patient. The linear 3 cm and 2 cm laceration on the occipital scalp was anesthetized using lidocaine with epinephrine. The wound was scrubbed, draped and explored to its base with a gloved finger. There were no deep structures involved. . The wound was repaired with jimena. The wound repair was simple. The procedure was performed by myself. Differential Diagnosis: 56-year-old female with history of diabetes, heart disease, schizoaffective disorder and bipolar disorder presents with a mechanical fall which occurred just prior to arrival hitting her right occiput, sustaining a laceration and also with positive loss of consciousness. She now has normal neurologic exam, no vomiting, no significant hematoma formation. Differential diagnosis includes intracranial hemorrhage, scalp laceration, concussion. In the emergency department, CT scan of head was obtained which was unremarkable for any intracranial hemorrhage or skull fracture. The patient's laceration was repaired by me. She has a normal EK G. Glucose in the field was normal. Given that this sounds to be a purely mechanical fall, I will not pursue further medical workup for it. The patient was observed for several hours with no ongoing symptoms whatsoever. I feel she is suitable for discharge at this time. Given that she is on Xarelto I have discussed strict return precautions with her. She is comfortable going home. - Data Points Medications Given: Discontinued Medications Diphtheria/Tetanus/Acell Pertussis (Boostrix) 0.5 ml IM .ONCE ONE Stop: 11/09/17 23:18 Last Admin: 11/10/17 00:12 Dose: 0.5 ml Departure - Departure Disposition: Home, Routine, Self-Care Clinical Impression: Fall from chair, initial encounter Head injury Qualifiers: Encounter type: initial encounter Qualified Code(s): S09.90XA - Unspecified injury of head, initial encounter Occipital scalp laceration Qualifiers: Encounter type: initial encounter Qualified Code(s): S01.01XA - Laceration without foreign body of scalp, initial encounter Condition: Good Instructions: Head Injury (ED), Staple Care (ED) Additional Instructions: Your jimena should be removed on November 21. You can come to the emergency department for this. You should return to the emergency department if your developing any headache, vomiting, or any other symptoms. Referrals: Fidelina Acosta MD [Primary Care Provider] - As per Instructions
[2017-11-10 01:20] VITALS: BP 142/81
--- NOTE | 2017-11-10 06:58 | CPEKG ---
Test Reason : OPEN Blood Pressure : / mmHG Vent. Rate : 077 BPM Atrial Rate : 079 BPM P-R Int : 149 ms QRS Dur : 102 ms QT Int : 403 ms P-R-T Axes : 021 -41 032 degrees QTc Int : 457 ms Sinus rhythm Left axis deviation Confirmed by Sirena Rouse ([id number]) on 11/10/2017 6:57:38 AM Referred By: Confirmed By:Sirena Rouse
== END 2017-11-10 01:15 | disposition home or self-care (01) ==
LOC: EDUNIT#
PROC: 0HQ0XZZ Repair Scalp Skin, External Approach (ICD-10-PCS; principal; 2017-11-09)
DX: S01.01XA Laceration without foreign body of scalp, initial encounter (principal); W22.09XA Striking against other stationary object, initial encounter; Y92.019 Unspecified place in single-family (private) house as the place of occurrence of the external cause; Y99.8 Other external cause status; R40.2412 Glasgow coma scale score 13-15, at arrival to emergency department; E10.9 Type 1 diabetes mellitus without complications; Z79.01 Long term (current) use of anticoagulants; Z23 Encounter for immunization
CPT/HCPCS: G0390

== ENCOUNTER → 2018-05-23 | Outpatient (CLI) | payer OTHER, MEDICAID | LOC: FIMAGING 13:22 | PROVIDERS: ATTEND Family Medicine | DX: R93.89 Abnormal findings on diagnostic imaging of other specified body structures (principal) ==

== ENCOUNTER → 2018-06-19 | Outpatient (CLI) | payer OTHER, MEDICAID ==
[~2018-06-19] MED LIST: IOPAMIDOL (ISOVUE-300) 100 ML BTL ONE
== END ==
LOC: FIMAGING 12:24
PROVIDERS: ATTEND Family Medicine
DX: R91.8 Other nonspecific abnormal finding of lung field (principal)
CPT/HCPCS: 71260; Q9967; 82565-PO

== ENCOUNTER → 2018-07-04 | Day surgery (SDC) | payer OTHER, MEDICAID ==
[~2018-07-04] MED LIST changes: +ALBUTEROL 3 ML DEYVIAL IH ONE; +EPINEPHrine 1 MG/ML INJ ONE; -IOPAMIDOL (ISOVUE-300) 100 ML BTL ONE; +LIDOCAINE 1% 300 MG/30 ML SDV ONE; +LIDOCAINE 2% JELLY 6 ML TOPICAL SYR ONE; +LIDOCAINE HCL 4% TOPICAL SOLN 50ML ONE; +MIDAZOLAM 2 MG/2 ML VIAL ONE; +NS 500 ML IV ONE; +fentaNYL 100 MCG/2 ML INJ ONE
--- NOTE | 2018-07-04 13:12 | PDHPUP ---
History & Physical Update H&P update statement: This history and physical update is based on an assessment of the patient which was completed after admission or registration (within 24 hours), but prior to the surgery/procedure. H&P update: H&P reviewed & patient examined, no change in patient's condition since H&P completed
--- NOTE | 2018-07-04 13:13 | PDPROPOC ---
Sedation Plan of Care Sedation Plan of Care: vital signs stable, mental status noted, patient educated of risks, benefits, alternatives, patient can tolerate sedation ASA Classification: ASA 2 Planned drugs: fentanyl, midazolam Mallampati Score: Class 2 Mallampati Reference Image:
[2018-07-04 13:30] VITALS: BP 130/67
== END | disposition home or self-care (01) ==
LOC: FSGY 12:45
PROVIDERS: ATTEND Internal Medicine Critical Care Medicine
DX: R91.1 Solitary pulmonary nodule (principal); Z53.29 Procedure and treatment not carried out because of patient's decision for other reasons
CPT/HCPCS: J0171; J2250; J3010; J7613

== ENCOUNTER 2018-07-12 06:04 | Day surgery (SDC) | payer OTHER, MEDICAID ==
[2018-07-12] MEDS ORDERED: NS 500 ML IV ONE (06:40)
[2018-07-12] MEDS ORDERED: ALBUTEROL 3 ML DEYVIAL IH ONE (06:40)
[2018-07-12] MEDS ORDERED: LIDOCAINE 1% 2 ML INJ ID PRN (06:40)
[2018-07-12] MEDS ORDERED: ALBUTEROL 3 ML DEYVIAL ONE (07:14)
[2018-07-12] MEDS ORDERED: LIDOCAINE 2% JELLY 6 ML TOPICAL SYR ONE (07:15)
[2018-07-12] MEDS ORDERED: EPINEPHrine 1 MG/ML INJ ONE (07:21)
[2018-07-12] MEDS ORDERED: LIDOCAINE 1% 300 MG/30 ML SDV ONE (07:22)
[2018-07-12] MEDS ORDERED: MIDAZOLAM 2 MG/2 ML VIAL ONE (07:28)
[2018-07-12] MEDS ORDERED: fentaNYL 100 MCG/2 ML INJ ONE (07:28)
[2018-07-12] MEDS ORDERED: MIDAZOLAM 2 MG/2 ML VIAL IVP ONE (08:13)
[2018-07-12] MEDS ORDERED: fentaNYL 100 MCG/2 ML INJ IVP ONE (08:13)
--- NOTE | 2018-07-12 08:32 | BVPULMO ---
[facility] Surgical Services- Pulmonology Patient Name: Kelsy Manning Procedure Date: 07/12/2018 6:46 AM Patient Type: Outpatient Attending MD/ER Physician: You Valenzuela MD Procedure: Bronchoscopy Indications: Left upper lobe mass Providers: You Valenzuela MD Medicines: Midazolam 3 mg mg IV, Fentanyl 50 mcg IV Complications: No immediate complications Procedure: After informed consent, a time out was performed. N95 masks were worn, and the procedure was done in a negative pressure room. The patient was given appropria te topical anesthesia and intravenous sedation. The fiberopic bronchoscope was pas sed via a bite block orally into the larynx and subsequently into the lower trachea bronchial tree. Throughout the procedure, the patient's blood pressure, pulse, and oxygen saturations were monitored continuously. The Bronchoscope (Video) was introduced through the mouth and advanced to the tracheobronchial tree of both lungs. The procedure was accomplished without difficulty. The patient tolerated the procedure well. Findings: The oropharynx appears normal. The larynx appears normal. The vocal cords appea r normal. The subglottic space is normal. The trachea is of normal caliber. The c remy is sharp. The tracheobronchial tree was examined to at least the first subsegme ntal level. Bronchial mucosa and anatomy are normal; there are no endobronchial lesi ons, and no secretions. Post Op Diagnosis: - Left upper lobe mass - The airway examination was normal. - Transbronchial lung biopsies were performed, though there was difficulty acce ssing the medial portion of the anterior SKYLAR where the mass was seen on CT scan. - Bronchoalveolar lavage was performed, revealing clear and thin secretions - Washings were also obtained. Estimated Blood Loss: Estimated blood loss: none. Recommendation: - Await BAL, biopsy and washing results. You Valenzuela MD You Valenzuela MD 07/12/2018 8:31:45 AM This report has been signed electronicallyYou Valenzuela MD Number of Addenda: 0 Note Initiated On: 07/12/2018 6:46 AM [email or web address]
[2018-07-12 10:27] VITALS: BP 139/70
== END 2018-07-12 09:30 | disposition home or self-care (01) ==
LOC: FSGY 06:04
PROVIDERS: ATTEND Internal Medicine Critical Care Medicine
DX: R91.1 Solitary pulmonary nodule (principal); R05 Cough; R63.4 Abnormal weight loss; J45.909 Unspecified asthma, uncomplicated; Z85.43 Personal history of malignant neoplasm of ovary; Z79.01 Long term (current) use of anticoagulants
CPT/HCPCS: J0171; J2250; J3010; J7613